=== PATIENT | female | born 1955 ===

== ENCOUNTER → 2018-10-30 09:21 | Outpatient (CLI) | payer OTHER ==
[~2018-10-30 09:21] MED LIST: ENALAPRIL MALE2.5 MG PO
== END | disposition home or self-care (01) ==
LOC: EKG 09:21
DX: R07.89 Other chest pain (principal)

== ENCOUNTER 2018-11-02 05:50 | Day surgery (SDC) | payer OTHER ==
[2018-11-02] MEDS ORDERED: Tylenol #3 PO (12:15)
[2018-11-02] MEDS ORDERED: DOXYCYCLINE HY100 M3 PO (12:16)
== END 2018-11-02 13:10 | disposition home or self-care (01) ==
LOC: CIR.AMB 05:50
DX: N84.0 Polyp of corpus uteri (principal); N92.0 Excessive and frequent menstruation with regular cycle; D26.9 Other benign neoplasm of uterus, unspecified